=== PATIENT | male | born 1970 | race Caucasian/White ===

== ENCOUNTER 2018-07-18 05:53 | Day surgery (SDC) | payer OTHER ==
[2018-07-18] VITALS (12 sets, daily range): BP systolic 72–138; BP diastolic 45–83
[~2018-07-18] VITALS: Ht 175.3 cm; Wt 90.7 kg
[2018-07-18] MEDS ORDERED: ceFAZolin 1gm IVPB IVPB ONE ×2 (06:00)
[2018-07-18] MEDS ORDERED: oxyCONTIN 20mg tab ORAL ONE (06:00)
[2018-07-18] MEDS ORDERED: celeBREX 200mg Cap **SURGERY PATIENTS ONLY ORAL ONE (06:00)
[2018-07-18] MEDS ORDERED: GLYBURIDE/METFORMIN PO (06:27)
[2018-07-18] MEDS ORDERED: BENAZEPRIL HCL20 MG ORAL (06:27)
[2018-07-18] MEDS ORDERED: Lidocaine 1% MPF 10mg/ml 5ml ONE (06:49)
[2018-07-18] MEDS ORDERED: Midazolam 2mg/2ml Inj ONE (06:49)
[2018-07-18] MEDS ORDERED: Propofol 200mg/20ml IV ONE (06:49)
[2018-07-18] MEDS ORDERED: Ketorolac 30mg Inj ONE ×2 (06:49→07:24)
[2018-07-18] MEDS ORDERED: fentaNYL 100 mcg/2 mL IV ONE (06:49)
[2018-07-18] MEDS ORDERED: Tylenol #3 tab (300mg/30mg) ORAL PRN (07:15)
[2018-07-18] MEDS ORDERED: HYDROmorphone 1mg/ml Carpuject SUBQ PRN (07:15)
[2018-07-18] MEDS ORDERED: HYDROcodone/Acetamin 5/325 tab ORAL PRN (07:15)
[2018-07-18] MEDS ORDERED: D5 1/2NS 1,000 ML IV SCH (07:15)
--- NOTE | 2018-07-18 07:15 | Pre-Procedure Note/Attestation ---
Pre-Procedure Note/Attestation Complete Prior to Procedure Planned Procedure: left Procedure Narrative: knee arthroscopy, possible menisectomy Indications for Procedure Pre-Operative Diagnosis: left knee interal derangment Attestation I attest that I discussed the nature of the procedure; its benefits; risks and complications; and alternatives (and the risks and benefits of such alternatives ), prior to the procedure, with the patient (or the patient's legal outside medical sales representative). I attest that, if there was a reasonable possibility of needing a blood transfusion, the patient (or the patient's legal outside medical sales representative) was given the [facility] standardized written summary, pursuant to the [place] Blood Safety Act ([place] Health and Safety Code # 1645, as amended). I attest that I re-evaluated the patient just prior to the surgery and that there has been no change in the patient's H&P, except as documented below: Robert Chung MD July 18, 2018 07:15
--- NOTE | 2018-07-18 07:16 | Operative Note - PDOC ---
Operative Note Operative Note Pre-op Diagnosis: left knee interal derangment Procedure: see op report Post-op Diagnosis: same as pre-op plus Operative Findings: consistent w/pre-op dx studies Anesthesia: general Specimen: none Complications: none Condition: stable Estimated Blood Loss: none Implant(s) used?: No Robert Chung MD July 18, 2018 07:16
[2018-07-18] MEDS ORDERED: Kenalog-40 1ml Vial ONE (07:24)
[2018-07-18] MEDS ORDERED: Duramorph PF 5mg/10ml amp ONE (07:25)
[2018-07-18] MEDS ORDERED: Bupivacaine 0.25% Inj 30ml INJ ONE (07:25)
[2018-07-18] MEDS ORDERED: Lidocaine 1% 10mg/ml/Epi 0.005mg/ml 30ml vial INJ ONE (07:25)
[2018-07-18] MEDS ORDERED: Duramorph PF 5mg/10ml amp EPIDUR ONE (07:58)
--- NOTE | 2018-07-18 08:08 | Anethesia Preoperative Eval ---
Anesthesia Pre-op PMH/ROS General Date of Evaluation: July 18, 2018 Time of Evaluation: 07:20 Anesthesiologist: Bg ASA Score: ASA 3 Mallampati Score Class I : Soft palate, uvula, fauces, pillars visible Class II: Soft palate, uvula, fauces visible Class III: Soft palate, base of uvula visible Class IV: Only hard plate visible Mallampati Classification: Class II Surgeon: Sheldon Diagnosis: L knee pain Surgical Procedure: L knee scope Anesthesia History: none Social History: current smoker Family History: no anesthesia problems Allergies: Coded Allergies: No Known Allergies (Unverified , 07/17/18) Medications: see eMAR Patient NPO?: Yes Past Medical History Cardiovascular: Reports: HTN; Denies: CAD, NV, valve dz, arrhythmia, other Pulmonary: Denies: asthma, COPD, ROSA, other Gastrointestinal/Genitourinary: Reports: GERD; Denies: CRI, ESRD, other Neurologic/Psychiatric: Reports: depression/anxiety; Denies: dementia, CVA, TIA, other Endocrine: Reports: DM - stable on pills; Denies: hypothyroidism, steroids, other HEENT: Denies: cataract (L), cataract (R), glaucoma, TELLER (L), TELLER (R), other Hematology/Immune: Denies: anemia, DVT, bleeding disorder, other Musculoskeletal/Integumentary: Denies: OA, RA, DJD, DDD, edema, other Other: obesity PMH Narrative: as above PSxH Narrative: see H&P Anesthesia Pre-op Phys. Exam Physician Exam Last Vital Signs Date Time Temp Pulse Resp B/P (MAP) Pulse Ox O2 Delivery O2 Flow Rate FiO2 07/18/18 06:32 97.7 82 20 138/83 98 Room Air Constitutional: NAD Neurologic: CN 2-12 intact Cardiovascular: RRR, no M/R/G Respiratory: CTA Gastrointestinal: S/NT/ND Airway Exam Mallampati Score: Class II MO: full Neck: short ROM: full Teeth: missing Dentures: no upper, no lower Anesthesia Pre-op A/P Labs see chart Studies Pre-op Studies: EKG - NSR Risk Assessment & Plan Assessment: ASA 3 Plan: GA with LMA Status Change Before Surgery: No Pre-Antibiotics Drug: Ancef 2gr. Given Within 1 Hr of Incision: Yes Time Given: 08:06 Chilo Pederson MD July 18, 2018 08:08
[2018-07-18] MEDS ORDERED: LR 1000ml 1,000 ML IVLG SCH (08:09)
[2018-07-18] MEDS ORDERED: DiphenhydrAMINE 50mg/ml Inj IVP PRN (08:15)
[2018-07-18] MEDS ORDERED: Ketorolac 30mg Inj IV PRN (08:15)
[2018-07-18] MEDS ORDERED: Meperidine 50mg/ml Inj(FOR RIGORS ONLY) IV PRN (08:15)
--- NOTE | 2018-07-18 08:42 | Immediate Post-Op Evaluation ---
Immediate Post-Op Evalulation Immediate Post-Op Evalulation Procedure: L knee arthroscopy meniscectomy Date of Evaluation: July 18, 2018 Time of Evaluation: 08:41 IV Fluids: 800 Blood Products: none Estimated Blood Loss: min Urinary Output: none Blood Pressure Systolic: 104 Blood Pressure Diastolic: 56 Pulse Rate: 68 Respiratory Rate: 20 O2 Sat by Pulse Oximetry: 99 Temperature (Fahrenheit): 97.6 Pain Score (1-10): 1 Nausea: No Vomiting: No Patient Status: reacts, patent, none Hydration Status: adequate Chilo Pederson MD July 18, 2018 08:42
--- NOTE | 2018-07-18 09:59 | 48 Hour Post Anesthesia Eval ---
Post Anesthesia Evaluation Procedure: L knee arthroscopy meniscectomy Date of Evaluation: July 18, 2018 Time of Evaluation: 09:57 Blood Pressure Systolic: 108 0: 56 Pulse Rate: 68 Respiratory Rate: 20 Temperature (Fahrenheit): 97.6 O2 Sat by Pulse Oximetry: 98 Airway: patent Nausea: No Vomiting: No Pain Intensity: 2 Hydration Status: adequate Cardiopulmonary Status: stable Mental Status/LOC: patient returned to baseline Follow-up Care/Observations: n/a Post-Anesthesia Complications: none Follow-up care needed: ready to discharge Chilo Pederson MD July 18, 2018 09:59
--- NOTE | 2018-07-18 10:20 | NUR ---
PT STATED KNOWS HOW TO USE CRUTCHES SAFELY
--- NOTE | 2018-07-18 16:30 | Operative Note - Dictated ---
DATE OF OPERATION: 07/18/2018 PREOPERATIVE DIAGNOSES: 1. Left knee medial meniscus tear. 2. Contusion, medial and lateral femoral condyle. POSTOPERATIVE DIAGNOSES: 1. Left knee medial meniscus tear. 2. Contusion, medial and lateral femoral condyle. PROCEDURES: 1. Left knee diagnostic arthroscopy. 2. Left knee partial medial meniscectomy. SURGEON: Robert Chung M.D. ANESTHESIA: MAC. INDICATION FOR PROCEDURE: The patient is a pleasant gentleman, who has had left knee pain. He had MRI, which showed a tear of the posterior horn of medial meniscus. After failing conservative treatment, he elected to undergo left knee partial medial meniscectomy. Risks, limitations, expectations, and complication related to the procedure were discussed in detail. All questions addressed. DESCRIPTION OF PROCEDURE: After informed consent was obtained, the patient was brought to the operative room. The patient was placed under general anesthesia. Left leg was prepped and draped in a sterile manner. Time-out was performed. A posterolateral stab incision was then made. Trocar introduced in the knee joint. Systematic tour of the knee was performed. There was hypertrophic fat pad in the patellofemoral compartment. There was thickening of medial plica. Medial compartment was entered. There was complex tear of posterior horn of medial meniscus. Partial meniscectomy using combination of shaver was performed. Once that was done, the synovectomy was completed in the anterior compartment, medial compartment, extending in the intercondylar notch, the lateral compartment. The ACL was probed and noted to be intact. Lateral compartment was free of any chondral damage. Camera was repositioned in the patellofemoral compartment. Excision of fat pad was completed. The instruments were removed. Portal sites were closed with 3-0 Monocryl sutures. ESTIMATED BLOOD LOSS: None. COMPLICATIONS: None. SPECIMENS: None. IMPLANTS: None. Robert Chung M.D. DR: AMOL JOB#: [id number] CC:
== END 2018-07-18 10:20 | disposition home or self-care (01) ==
LOC: SUR 05:53
DX: S83.242A Other tear of medial meniscus, current injury, left knee, initial encounter (principal); S70.12XA Contusion of left thigh, initial encounter; X58.XXXA Exposure to other specified factors, initial encounter; Y92.9 Unspecified place or not applicable; M79.4 Hypertrophy of (infrapatellar) fat pad; I10 Essential (primary) hypertension; K21.9 Gastro-esophageal reflux disease without esophagitis; F32.9 Major depressive disorder, single episode, unspecified; F41.9 Anxiety disorder, unspecified; E11.9 Type 2 diabetes mellitus without complications; E66.9 Obesity, unspecified
CPT/HCPCS: 29876; 29881; 82962; J0690; J1885; J2250; J2704; J3010; J3301; J3490; 94003; 94150